=== PATIENT | female | born 1990 | race Caucasian/White ===

== ENCOUNTER → 2017-05-24 | Outpatient (CLI) | payer OTHER ==
[~2017-05-24] VITALS: Ht 157.5 cm; Wt 86.0 kg
[~2017-05-24] MED LIST: ACETAMINOPHEN325 M3 PO; IBUPROFEN800 MG PO; PRENATAL TABLE1 EAC3 PO; VITAMIN C1000 MG PO; ZYRTEC10 M3 PO
[2017-05-24 16:32] VITALS: BP 108/65
== END | disposition home or self-care (01) ==
LOC: IVINF 07:30
DX: Z31.82 Encounter for Rh incompatibility status (principal); Z3A.00 Weeks of gestation of pregnancy not specified
CPT/HCPCS: 96372; J2790

== ENCOUNTER 2017-08-07 00:14 | Outpatient (CLI) | payer OTHER ==
[2017-08-07 00:32] VITALS: BP 133/80
[2017-08-07 00:59] VITALS: BP 127/73
== END 2017-08-07 01:45 | disposition home or self-care (01) ==
LOC: LDRP-OP 00:14 → 2WEST 00:15 → LDRP-OP 09-20 13:30
DX: O47.1 False labor at or after 37 completed weeks of gestation (principal); Z3A.38 38 weeks gestation of pregnancy
CPT/HCPCS: 59025; G0378

== ENCOUNTER 2017-08-19 01:29 | Outpatient (CLI) | payer OTHER ==
[2017-08-19 01:53] VITALS: BP 116/58
[2017-08-19 03:31] VITALS: BP 126/62
[2017-08-20] MEDS ORDERED: TYLENOL EXTRA500 MG PO (00:51)
== END 2017-08-19 04:20 | disposition home or self-care (01) ==
LOC: LDRP-OP 01:29 → 2WEST 01:30 → LDRP-OP 09-20 02:07
DX: O47.1 False labor at or after 37 completed weeks of gestation (principal); Z3A.38 38 weeks gestation of pregnancy
CPT/HCPCS: 59025; G0378

== ENCOUNTER 2017-08-19 22:56 | Inpatient (IN) | payer OTHER ==
[~2017-08-19] VITALS: Ht 157.5 cm; Wt 90.7 kg
[2017-08-19 23:10] VITALS: BP 118/70
[2017-08-19 23:48] LABS: BASOPHIL (%) 0.4 % (0-1); EOSINOPHIL (%) 0.8 % (0-5); EOSINOPHIL COUNT 0.1 K/uL (0-0.3); HEMATOCRIT 33.3 % (36.0-46.0); HEMOGLOBIN 11.7 G/DL (11.9-15.5); IMMATURE GRANULOCYTE (%) 0.7 % (0.0-0.7); LYMPHOCYTE (%) 14.6 % (15-42); LYMPHOCYTE COUNT 1.4 K/uL (1.0-2.8); MCH 30.7 PG (29.0-34.0); MCHC 35.1 G/DL (30.0-36.0); MCV 87.4 FL (83-99); MONOCYTE (%) 8.7 % (3-12); MONOCYTE COUNT 0.8 K/uL (0-0.8); NEUTROPHIL (%) 74.8 % (45-76); NEUTROPHIL COUNT 7.2 K/uL (1.8-6.4); PLATELET COUNT 239 K/uL (156-360); RBC DIS.WIDTH-CV 13.5 % (11.8-14.6); RBC DIS.WIDTH-SD 42.8 % (39-53); RED BLOOD COUNT 3.81 M/uL (3.80-5.20); WHITE BLOOD COUNT 9.6 K/uL (4.1-10.2)
[2017-08-20] VITALS (13 sets, daily range): BP systolic 107–141; BP diastolic 56–79
[2017-08-20] MEDS ORDERED: TYLENOL EXTRA500 MG PO (00:51)
[2017-08-21 07:55] VITALS: BP 134/83
[2017-08-21 08:55] LABS: BASOPHIL (%) 0.4 % (0-1); EOSINOPHIL (%) 1.5 % (0-5); EOSINOPHIL COUNT 0.2 K/uL (0-0.3); HEMATOCRIT 33.2 % (36.0-46.0); HEMOGLOBIN 11.4 G/DL (11.9-15.5); IMMATURE GRANULOCYTE (%) 0.6 % (0.0-0.7); LYMPHOCYTE (%) 14.1 % (15-42); LYMPHOCYTE COUNT 1.5 K/uL (1.0-2.8); MCH 30.7 PG (29.0-34.0); MCHC 34.3 G/DL (30.0-36.0); MCV 89.5 FL (83-99); MONOCYTE (%) 7.7 % (3-12); MONOCYTE COUNT 0.8 K/uL (0-0.8); NEUTROPHIL (%) 75.7 % (45-76); NEUTROPHIL COUNT 8.1 K/uL (1.8-6.4); PLATELET COUNT 260 K/uL (156-360); RBC DIS.WIDTH-CV 14.1 % (11.8-14.6); RBC DIS.WIDTH-SD 45.5 % (39-53); RED BLOOD COUNT 3.71 M/uL (3.80-5.20); WHITE BLOOD COUNT 10.7 K/uL (4.1-10.2)
[2017-08-21 15:55] VITALS: BP 119/72
[2017-08-22 07:23] VITALS: BP 114/72
== END 2017-08-22 15:55 | disposition home or self-care (01) | DRG 775 ==
LOC: LDRP-OP 22:56 → 2WEST 22:57 → LDRP-OP 08-20 14:40 → 2WEST 08-22 15:55 → LDRP-OP 09-20 05:06
PROVIDERS: Advanced Practice Midwife
DX: O71.4 Obstetric high vaginal laceration alone (principal); O70.0 First degree perineal laceration during delivery; O99.214 Obesity complicating childbirth; E66.9 Obesity, unspecified; Z68.30 Body mass index [BMI] 30.0-30.9, adult; O99.344 Other mental disorders complicating childbirth; Z37.0 Single live birth; Z3A.39 39 weeks gestation of pregnancy; F43.10 Post-traumatic stress disorder, unspecified
CPT/HCPCS: 59025; 83030; 85025; 86850; 86900; 86901; G0378; J2590; J2790; Q0169